=== PATIENT | male | born 1970 | race Caucasian/White ===

== ENCOUNTER 2017-07-15 08:58 | Emergency (ER) | payer SELFPAY ==
[2017-07-15 10:56] VITALS: BP 147/83
== END 2017-07-15 10:55 | disposition home or self-care (01) ==
LOC: ED 08:58
DX: S93.401A Sprain of unspecified ligament of right ankle, initial encounter (principal); E11.9 Type 2 diabetes mellitus without complications; X50.1XXA Overexertion from prolonged static or awkward postures, initial encounter; Y93.89 Activity, other specified; Y92.89 Other specified places as the place of occurrence of the external cause; Y99.8 Other external cause status